=== PATIENT | female | born 1980 | race Caucasian/White ===

== ENCOUNTER 2023-11-08 07:59 | Day surgery (SDC) | payer OTHER ==
[~2023-11-08] VITALS: Ht 160 cm; Wt 102.1 kg
[2023-11-08] MEDS ORDERED: fentaNYL citrate 0.05 MG/ML VIAL ONE ×2 (09:40→11:15)
[2023-11-08] MEDS ORDERED: LIDOCAINE 2% 100 MG/5 ML UJET TP ONE ×2 (09:40→11:15)
[2023-11-08] MEDS ORDERED: MIDAZOLAM 5 MG/5 ML VIAL ONE (09:40)
== END 2023-11-08 12:35 | disposition home or self-care (01) ==
LOC: MOR 07:59 → MMU 08:01 → MOR 12:35
PROVIDERS: ATTEND Internal Medicine Gastroenterology
DX: Z12.11 Encounter for screening for malignant neoplasm of colon (principal); K21.9 Gastro-esophageal reflux disease without esophagitis; F41.9 Anxiety disorder, unspecified; J45.909 Unspecified asthma, uncomplicated; Z85.118 Personal history of other malignant neoplasm of bronchus and lung; Z88.0 Allergy status to penicillin; Z88.1 Allergy status to other antibiotic agents; Z79.899 Other long term (current) drug therapy
CPT/HCPCS: 45378; J3010; J2250